=== PATIENT | male | born 1960 ===

== ENCOUNTER 2021-08-02 14:07 | Observation (INO) ==
[2021-08-02 17:59] LABS: Rapid COVID-19 Molecular Undetected (Undetected)
[2021-08-02] MEDS: Digoxin IV 0.5 MG/2 ML AMP (0.25 MG/ML) IV SLOW PU SCH ×2 (18:45→21:04)
[2021-08-02 19:23] LABS: ABS Basophils 0.1 10^3/ul (0-0.2); ABS Eosinophils 0.2 10^3/ul (0-0.6); ABS Lymphocytes 2.6 10^3/ul (1.0-4.8); ABS Monocytes 0.6 10^3/ul (0-0.8); ABS Neutrophils 5.3 10^3/ul (1.5-7.7); Eosinophil % 1.8 %; Hematocrit 45 % (42-52); Hemoglobin 15.9 g/dL (14.0-18.0); Lymphocyte % 29.8 %; Mean Corpuscular HGB Conc 35 g/dL (31-36); Mean Corpuscular Hemoglobin 34 pg (27-31); Mean Corpuscular Volume 96 fL (80-94); Mean Platelet Volume 8.5 fL (7.4-10.4); Nucleated Red Blood Cells % 0.1; Platelet Count 283 10^3/uL (150-450); Red Blood Count 4.72 10^6 /uL (4.18-5.48); Red Cell Distribution Width 13 % (10-15); White Blood Count 8.7 10^3/uL (3.5-10.8)
[2021-08-02 19:39] LABS: Calcium 9.2 mg/dL (8.6-10.3); EGFR African American 81.8 (>60); EGFR Non-African American 67.6 (>60); Potassium 4.5 mmol/L (3.5-5.0)
[2021-08-03 07:22] LABS: ABS Basophils 0.1 10^3/ul (0-0.2); ABS Eosinophils 0.1 10^3/ul (0-0.6); ABS Lymphocytes 2.2 10^3/ul (1.0-4.8); ABS Monocytes 0.6 10^3/ul (0-0.8); ABS Neutrophils 5.3 10^3/ul (1.5-7.7); Eosinophil % 1.6 %; Hematocrit 46 % (42-52); Hemoglobin 16.2 g/dL (14.0-18.0); Lymphocyte % 26.4 %; Mean Corpuscular HGB Conc 35 g/dL (31-36); Mean Corpuscular Hemoglobin 34 pg (27-31); Mean Corpuscular Volume 96 fL (80-94); Mean Platelet Volume 8.4 fL (7.4-10.4); Nucleated Red Blood Cells % 0.1; Platelet Count 288 10^3/uL (150-450); Red Blood Count 4.82 10^6 /uL (4.18-5.48); Red Cell Distribution Width 13 % (10-15); White Blood Count 8.2 10^3/uL (3.5-10.8)
[2021-08-03 07:38] LABS: Albumin/Globulin Ratio 1.2 (1-3); Calcium 9.1 mg/dL (8.6-10.3); EGFR African American 69.3 (>60); EGFR Non-African American 57.3 (>60); Globulin 3.4 g/dL (2-4); Potassium 3.8 mmol/L (3.5-5.0); Total Bilirubin 1.4 mg/dL (0.2-1.0); Total Protein 7.4 g/dL (6.4-8.9)
[2021-08-03 07:41] VITALS: BP 103/69
== END 2021-08-03 13:51 | disposition home or self-care (01) | DRG 201 ==
LOC: INTOOBSV 15:59 → MEDTELE 15:59 → SUATTDRO 15:59
PROVIDERS: ADMIT Internal Medicine; ATTEND Internal Medicine